=== PATIENT | female | born 1975 | race Two or more races ===

== ENCOUNTER 2023-01-13 10:22 | Emergency (ER) | payer MEDICAID ==
[~2023-01-13] VITALS: Ht 152.4 cm; Wt 69.5 kg
[2023-01-13 10:37] VITALS: BP 154/97; PULSE 73; RESP 18; TEMP 97.4; O2SAT 100
[2023-01-13] MEDS ORDERED: KETOROLAC TROMETH 60MG/2ML VIAL IM ONE (11:15)
[2023-01-13] MEDS ORDERED: IBUP-1456 PO (12:08)
[2023-01-13] MEDS ORDERED: PRED20TA2 PO (12:08)
== END 2023-01-13 12:13 | disposition home or self-care (01) ==
LOC: ER 10:22
DX: G89.29 Other chronic pain (principal); M54.50 Low back pain, unspecified; X50.1XXA Overexertion from prolonged static or awkward postures, initial encounter; Y93.01 Activity, walking, marching and hiking; Y92.89 Other specified places as the place of occurrence of the external cause; Y99.8 Other external cause status
CPT/HCPCS: 72100; 96372; 99283; J1885